=== PATIENT | male | born 1970 | race Caucasian/White ===

== ENCOUNTER 2020-04-18 13:38 | Outpatient (NON) | payer BC, SELFPAY ==
[2020-04-18 14:02] LABS: Basophils Absolute Auto 0.04 K/mm3 (0.00-0.10); Basophils Percent Auto 0.2 % (0.0-1.0); Eosinophils Absolute Auto 0.07 K/mm3 (0.02-0.50); Eosinophils Percent Auto 0.4 % (1.0-6.0); Hematocrit 44.5 % (40.0-54.0); Hemoglobin 14.6 g/dL (14.0-18.0); Immature Granulocyte Absolute 0.18 K/mm3 (0.00-0.00); Immature Granulocyte Percent A 0.9 % (0.0-0.0); Lymphocytes Absolute Auto 0.92 K/mm3 (1.10-4.50); Lymphocytes Percent Auto 4.8 % (18.0-42.0); Mean Corpuscular HGB Conc 32.8 g/dL (32.0-36.0); Mean Corpuscular Hemoglobin 27.3 pg (27.0-31.0); Mean Corpuscular Volume 83.2 fL (78.0-102.0); Monocytes Absolute Auto 1.69 K/mm3 (0.10-0.90); Monocytes Percent Auto 8.9 % (2.0-11.0); Neutrophils Absolute Auto 16.2 K/mm3 (1.7-7.2); Neutrophils Percent Auto 84.8 % (50.0-70.0); Platelet Count Result 281 K/mm3 (150-420); Red Blood Count 5.35 M/mm3 (4.70-6.10); Red Cell Distribution Width 13.6 % (11.6-14.4); White Blood Count 19.1 K/mm3 (4.8-10.8)
[2020-04-18 14:03] LABS: Appearance Urine Sl Cloudy (Clear); Bilirubin Urine Negative (Negative); Color Urine Yellow (Yellow); Glucose Urine UA Negative (Negative); Ketones Urine Negative (Negative); Leukocyte Esterase Ur 1+ LEU/UL (Negative); Nitrate Urine Negative (Negative); Protein Urine Negative (Negative); Specific Grav Ur 1.015 (1.010-1.020); Urobilinogen Urine 0.2 mg/dL (0.2-1.0); pH Urine 5.5 (5.0-8.0)
[2020-04-18 14:09] LABS: Add Urine Microscopic? YES; Blood Urine Trace-Intact (Negative); RBC Urine 0-2 /hpf (0-2); WBC Urine 21-30 /hpf (0-3)
[2020-04-18 14:10] LABS: Bacteria Urine 3+ /hpf; Squamous Epithelial Cell Urine None seen /hpf (Few)
[2020-04-18 14:30] LABS: Alanine Aminotransferase 40 U/L (16-63); Albumin Level 3.6 g/dL (3.4-5.0); Alkaline Phosphatase 86 U/L (46-116); Anion Gap 12.9 mmol/L (7-16); Aspartate Amino Transferase 24 U/L (15-37); Bilirubin,Total 0.6 mg/dL (0.00-1.00); Blood Urea Nitrogen 12 mg/dL (7-18); Calcium 8.8 mg/dL (8.5-10.1); Carbon Dioxide 27 mmol/L (21-32); Chloride 98 mmol/L (98-108); Estimated Glomerular Filt Rate > 60; Glucose 110 mg/dL (70-99); Osmolality Calculated 278 mOsm/kg (285-295); Potassium 3.9 mmol/L (3.5-5.1); Prostate Specific Antigen 22.1 ng/mL (< OR = 4.0); Sodium 134 mmol/L (136-145); Total Protein 7.3 g/dL (6.4-8.2)
== END 2020-04-18 13:39 ==
PROVIDERS: Visit Provider Nurse Practitioner Family
DX: N39.0 Urinary tract infection, site not specified (principal); R97.20 Elevated prostate specific antigen [PSA]; R39.198 Other difficulties with micturition
CPT/HCPCS: 36415; 80053; 81001; 84153; 85025; 87077; 87086; 87088; 87186

== ENCOUNTER 2021-08-28 08:39 | Outpatient (CLI) | payer BC, SELFPAY ==
[2021-08-28 10:02] LABS: SARS-CoV-2 RNA PCR Negative (Negative)
== END 2021-08-28 08:40 | disposition home or self-care (01) ==
LOC: CHSLAB 08:45
PROVIDERS: PCP Nurse Practitioner Family; Visit Provider Nurse Practitioner Family
DX: R09.81 Nasal congestion (principal); Z20.822 Contact with and (suspected) exposure to COVID-19
CPT/HCPCS: C9803; U0003; U0005

== ENCOUNTER 2022-06-12 09:37 | Outpatient (CLI) | payer BC, SELFPAY ==
[2022-06-12 10:59] LABS: SARS-CoV-2 RNA PCR Positive (Negative)
== END 2022-06-12 09:38 | disposition home or self-care (01) ==
LOC: CHSLAB 09:39
PROVIDERS: PCP Nurse Practitioner Family; Visit Provider Nurse Practitioner Family
DX: U07.1 COVID-19 (principal)
CPT/HCPCS: C9803; U0003; U0005

== ENCOUNTER 2024-08-15 13:31 | Emergency (ER) | payer BC, SELFPAY ==
--- NOTE | ~2024-08-15 | XR_ITS ---
EXAMINATION: XR chest 2V DATE: 08/15/2024 14:32 INDICATION: Cough. TECHNIQUE: Frontal and lateral views of the chest were obtained. COMPARISON: Chest CT 11/07/2019. FINDINGS: There are airspace opacities in basilar right lower lobe. No pleural effusion or pneumothor ax. The heart size is normal. IMPRESSION: 1. Airspace opacities in basilar right lower lobe, consistent with atelectasis versus pneumonia. Reviewed, dictated and finalized at location A.
[2024-08-15 13:55] VITALS: BP 166/86; PULSE 120; RESP 18; TEMP 36.9; O2SAT 94
[2024-08-15 14:00] VITALS: BP 146/81; PULSE 117; RESP 24; O2SAT 94; O2SAT 96
[2024-08-15 14:15] LABS: Basophils Percent Auto 0.4 % (0.2-1.2); Eosinophils Percent Auto 0.2 % (0-4.4); Hematocrit 46.2 % (42.0-52.0); Hemoglobin 14.9 g/dL (14.0-18.0); Immature Granulocyte Absolute 0.05 K/mm3 (0.00-0.031); Immature Granulocyte Percent A 0.5 % (0-0.5); Lymphocytes Absolute Auto 0.88 K/mm3 (0.9-3.2); Mean Corpuscular HGB Conc 32.3 g/dl (32-36); Mean Corpuscular Hemoglobin 26.7 pg (26-34); Mean Corpuscular Volume 82.6 fl (80-100); Monocytes Absolute Auto 0.9 K/mm3 (0.1-0.6); Neutrophils Absolute Auto 7.9 K/mm3 (1.3-6.7); Neutrophils Percent Auto 80.9 % (45.5-73.1); Platelet Count Result 338 k/mm3 (150-375); Red Blood Count 5.59 M/mm3 (4.6-6.20); Red Cell Distribution Width 13.7 % (11.5-14.5); White Blood Count 9.8 K/mm3 (4.5-10.0)
[2024-08-15 14:18] LABS: Add Urine Microscopic? YES; Appearance Urine Clear (Clear); Bacteria Urine None Seen /hpf; Bilirubin Urine Negative (Negative); Blood Urine Negative (Negative); Color Urine Yellow (Yellow); Glucose Urine UA Negative (Negative); Ketones Urine Negative (Negative); Leukocyte Esterase Ur Negative LEU/UL (Negative); Nitrate Urine Negative (Negative); Protein Urine 1+ mg/dL (Negative); RBC Urine 0-2 /hpf (0-2); Specific Grav Ur 1.018 (1.001-1.035); Squamous Epithelial Cell Urine None Seen /hpf (Few); Urobilinogen Urine 0.2 mg/dL (<2.0); WBC Urine 0-5 /hpf (0-3); pH Urine 5.5 (5.0-9.0)
[2024-08-15 14:22] LABS: Alanine Aminotransferase 22 U/L (6-50); Albumin Level 4.4 g/dL (3.5-5.1); Alkaline Phosphatase 84 U/L (38-126); Anion Gap 12 mmol/L (4-12); Aspartate Amino Transferase 24 U/L (17-59); Bilirubin,Total 0.7 mg/dL (0.2-1.3); Blood Urea Nitrogen 12 mg/dL (9-20); Calcium 9.3 mg/dL (8.4-10.2); Carbon Dioxide 24 mmol/L (22-30); Chloride 98 mmol/L (98-107); Estimated CRCL calculation 122 ml/min; Estimated Glomerular Filt Rate > 60; Glucose 193 mg/dL (65-110); Potassium 3.3 mmol/L (3.4-5.0); Sodium 134 mmol/L (137-145)
[2024-08-15 14:29] LABS: NT Pro B Type Natriuretic Pept 246 pg/mL (19.9-100)
[2024-08-15 14:30] VITALS: BP 144/88; PULSE 111; RESP 24; O2SAT 95
[2024-08-15] MEDS: SODIUM CHLORIDE 0.9% IV 1,000 ML 999 ML IV CONT (14:43)
[2024-08-15 14:49] LABS: Influenza A QL RT-PCR Negative (Negative); Influenza B QL RT-PCR Negative (Negative); RSV RNA, RT-PCR Negative (Negative); SARS-CoV-2 RNA PCR Negative (Negative)
[2024-08-15 15:00] VITALS: BP 152/82; PULSE 104; RESP 20; O2SAT 95
[2024-08-15 15:30] VITALS: BP 154/90; PULSE 103; RESP 20; O2SAT 97
--- NOTE | 2024-08-15 15:46 | ECG_ITS ---
Test Date: 2024-08-15 13:57:48 Measurements Intervals [place] Rate: 121 P: 16 WI: 156 QRS: 43 QRSD: 95 T: 18 QT: 420 QTc: 597 Interpretive Statements SINUS TACHYCARDIA NONSPECIFIC T-WAVE ABNORMALITY No previous ECG available for comparison Electronically Signed On 08-16-2024 11:58:39 CDT by Maria Luz Edmond M.D.
--- NOTE | 2024-08-15 16:24 | ED.GENADULT ---
HPI - General Adult General Chief complaint: Weakness Stated complaint: WEAK Time Seen by Provider: 08/15/24 13:44 History of Present Illness HPI narrative: Patient is a 54-year-old male who presents ER with weakness. Worsening over last couple days. Reports fevers and chills. Went to an urgent care and was diagnosed with heart failure and pneumonia. He is prescribed Levaquin and Lasix. He has had poor appetite. No syncope. Related Data Home Medications Medication Instructions Recorded Confirmed acetaminophen 500 mg tablet 1,000 mg PO Q6H PRN 07/31/22 06/29/23 (Tylenol Extra Strength) cholecalciferol (vitamin D3) 125 125 mcg PO DAILY 07/31/22 06/29/23 mcg (5,000 unit) capsule docusate sodium 100 mg capsule 100 mg PO DAILY 07/31/22 06/29/23 (Colace) Allergies Allergy/AdvReac Type Severity Reaction Status Date / Time Penicillins Allergy Intermediate Unknown Verified 08/15/24 13:43 Review of Systems Review of Systems: All systems reviewed & are unremarkable except as noted in HPI and below Constitutional: Constitutional: Reports chills, Reports fatigue, Reports fever(s) and Reports poor appetite ENT: Reports system reviewed and no additional complaints, except as documented Cardiovascular: Cardiovascular: Reports no additional cardiovascular complaints Respiratory: Respiratory: Reports cough, Denies dyspnea and Denies wheezing Gastrointestinal: Gastrointestinal: Reports no additional gastrointestinal complaints [facility] Past Medical History Medical History (Updated 08/15/24 @ 16:33 by Adam Galan MD) Acute bacterial sinusitis BMI 50.0-59.9, adult BPH (benign prostatic hyperplasia) BPH (benign prostatic hyperplasia) Enlarged prostate Fatigue HTN (hypertension) Surgical History Surgical History History of cystoscopy Cystoscopy, laser vaporization prostate on 07/29/[address] Grover Family History Family History Father Family history of type 2 diabetes mellitus Father Diabetes mellitus Family history of cardiovascular disease Social History Social History (Updated 10/13/23 @ 13:51 by Rosemary Norwood APRN) Smoking status: Former smoker Tobacco type: cigarettes Smoking end date: 11/02/93 Alcohol intake: current Gender identity (if verbalized by the patient): Male Exam Narrative: GENERAL: Well-appearing, obese, and in no acute distress. HEAD: Normocephalic, atraumatic. ENT: Mucous membranes moist. NECK: Supple. CHEST: Clear to auscultation. No respiratory distress. HEART: Tachycardic and regular. Normal peripheral pulses. ABDOMEN: Soft, nontender, nondistended. EXTREMITIES: Normal range of motion. No edema. SKIN: Warm, dry, no rash. NEURO: Alert and oriented x3. PSYCH: Normal mood and affect. Course Course Emergency Course: patient receive IV fluid. Feels much better. Instructed to discontinue furosemide but to continue his antibiotic. Suspect dehydration and pneumonia. Follow-up with PCP. Vital Signs Vital signs: Vital Signs Temperature 98.5 F 08/15/24 13:55 Pulse Rate 120 H 08/15/24 13:55 Respiratory Rate 18 08/15/24 13:55 Blood Pressure 166/86 H 08/15/24 13:55 Pulse Oximetry 94 08/15/24 13:55 Temperature 98.5 F 08/15/24 13:55 Pulse Rate 103 H 08/15/24 15:30 Respiratory Rate 20 08/15/24 15:30 Blood Pressure 154/90 H 08/15/24 15:30 Pulse Oximetry 97 08/15/24 15:30 Oxygen Delivery Room Air 08/15/24 14:00 Medical Decision Making Vital Signs Vital Signs: Vital Signs Temperature 98.5 F 08/15/24 13:55 Pulse Rate 120 H 08/15/24 13:55 Respiratory Rate 18 08/15/24 13:55 Blood Pressure 166/86 H 08/15/24 13:55 Pulse Oximetry 94 08/15/24 13:55 Temperature 98.5 F 08/15/24 13:55 Pulse Rate 103 H 08/15/24 15:30 Respiratory Rate 20 08/15/24 15:30 Blood Pressure 15
[2024-08-15 16:30] VITALS: BP 163/91; PULSE 104; RESP 20; TEMP 37.2; O2SAT 98
== END 2024-08-15 16:52 | disposition home or self-care (01) ==
PROVIDERS: Emergency Provider Emergency Medicine
DX: J18.9 Pneumonia, unspecified organism (principal); E86.0 Dehydration; Z20.822 Contact with and (suspected) exposure to COVID-19; I10 Essential (primary) hypertension; N40.0 Benign prostatic hyperplasia without lower urinary tract symptoms; Z87.891 Personal history of nicotine dependence; Z79.899 Other long term (current) drug therapy; R94.31 Abnormal electrocardiogram [ECG] [EKG]; R00.0 Tachycardia, unspecified
CPT/HCPCS: 36415; 71046; 80053; 81001; 83880; 85025; 87637; 93005; 96360; 99283; J7030

== ENCOUNTER 2024-12-29 14:17 | Outpatient (CLI) | payer BC, SELFPAY | END 2024-12-29 14:18 | disposition home or self-care (01) | LOC: CHSIMG 14:20 | PROVIDERS: PCP Nurse Practitioner Family; Visit Provider Nurse Practitioner Family | DX: M79.89 Other specified soft tissue disorders (principal) | CPT/HCPCS: 93971 ==

== ENCOUNTER 2025-04-11 11:49 | Outpatient (CLI) | payer BC, SELFPAY ==
--- NOTE | 2025-04-11 11:54 | ECHO_ITS ---
Patient Info Name: Zachary Ellison Age: 55 years : 1970 Gender: Male Ht: 70 in Wt: 350 lbs BSA: 2.89 m2 HR: 102 bpm BP: 160 / 100 mmHg Technical Quality: Fair Exam Date: 04/11/2025 11:55 AM Patient Status: O Admit Date: 04/11/2025 Exam Type: CA echo doppler color flow Complete two-dimensional, color flow and Doppler transthoracic echocardiogram is performed. Die Engraver: Danyell Sy Attending Provider: Sloane Villegas Summary 1. Complete two-dimensional, color flow and Doppler transthoracic echocardiogram is performed. 2. Left ventricular chamber dimension is normal. 3. Left ventricular systolic function is normal, estimated at 65-70. 4. There is mild concentric increased left ventricular wall thickness. 5. The left ventricular diastolic function is normal. 6. E/e' 7 is not elevated. 7. Left atrial chamber dimension is mildly enlarged. 8. There is trace mitral valve regurgitation. 9. There is trace tricuspid valve regurgitation. 10. Dilated inferior vena cava with >50% collapse upon inspiration consistent with elevated right atrial pressure, 10 mmHg. Left Ventricle E/e' 7 is not elevated. Left ventricular chamber dimension is normal. Left ventricular systolic function is normal, estimated at 65-70. There is mild concentric increased left ventricular wall thickness. The left ventricular diastolic function is normal. Right Ventricle Right ventricular chamber dimension is normal. Right ventricular systolic function is normal and with normal TAPSE 3.3 cm. Left Atria Left atrial chamber dimension is mildly enlarged. Right Atria Right atrial chamber dimension is normal. Aortic Valve The aortic valve is trileaflet. There is no aortic valve stenosis. There is no aortic valve regurgitation. Pulmonic Valve There is no pulmonic regurgitation. Mitral Valve There is no mitral valve stenosis. There is trace mitral valve regurgitation. Tricuspid Valve There is trace tricuspid valve regurgitation. RVSP is not measured due to an inadequate TR jet. Pericardium/Pleural There is no pericardial effusion. Inferior Vena Cava Dilated inferior vena cava with >50% collapse upon inspiration consistent with elevated right atrial pressure, 10 mmHg. Aorta The aortic root size at the sinus of Valsalva is normal. Left Ventricular Outflow Tract Name Value Normal LVOT 2D LVOT Diameter 2.2 cm LVOT Doppler LVOT Peak Velocity 134 cm/s LVOT Peak Gradient 7 mmHg LVOT Mean Gradient 4 mmHg LVOT VTI 22 cm LVOT VTI/AV VTI Ratio 0.9 LVOT Stroke Volume 80 ml LVOT CO 8.0 l/min LVOT CI 2.8 l/min/m2 Pulmonic Valve Name Value Normal PV Doppler PV Peak Velocity 159 cm/s PV Peak Gradient 10 mmHg PV Regurgitation Doppler OK Peak End Diastolic Velocity 81 cm/s Mitral Valve Name Value Normal MV Diastolic Function MV E Peak Velocity 110 cm/s MV A Peak Velocity 92 cm/s MV E/A 1.2 MV Decel Time (PW) 183 ms MV Annular TDI MV E/e' (Septal) 7.5 MV E/e' (Lateral) 8.6 MV E/e' (Average) 8.0 Tricuspid Valve Name Value Normal Estimated PAP/RSVP RA Pressure 10 mmHg <=5 TV Annular TDI TV Lateral Prachi s' Velocity 17.3 cm/s >=9.5 Aortic Valve Name Value Normal AV Doppler AV Peak Velocity 153 cm/s AV Peak Gradient 9 mmHg AV Mean Gradient 5 mmHg AV VTI 25 cm AV Area (Cont Eq VTI) 3.2 cm2 >=3.0 AV Area (Cont Eq Mohan) 3.2 cm2 AV DI (Mohan) 0.88 AV Regurgitation 2D LVOT Area 3.7 cm2 Ventricles Name Value Normal LV Dimensions 2D/MM IVS Diastolic Thickness (2D) 1.2 cm 0.6-1.0 LVID Diastole (2D) 4.9 cm 4.2-5.8 LVIW Diastolic Thickness (2D) 1.0 cm 0.6-1.0 LVID Systole (2D) 3.1 cm 2.5-4.0 LVOT Diameter 2.2 cm LV Mass (2D Cubed) 198.84 g 88.00-224.00 LV Mass Index (2D Cubed) 69 g/m2 49-115 Relative Wall Thickness (2D) 0.39 <=0.42 LV Fractional Shortening/Ejection Fraction 2D/MM LV Fractional Shortening (2D) 37 % 25-43 LV EF (2D Teichholz) 67 % LV Diastolic Volume (4C MOD) 170 ml LV EF (4C MOD) 63 % LV Diastolic Volume (2C MOD) 189 ml LV EF (2C MOD) 66 % LV Diastolic Volume (BP MOD) 181 ml 62-150 LV Diastolic Volume Index (BP MOD) 63 ml/m2 34-74 LV Systolic Volume (BP MOD) 64 ml 21-61 LV Systolic Volume Index (BP MOD) 22 ml/m2 11-31 LV EF (BP MOD) 64 % 52-72 LV Diastolic Length (4C) 10.0 cm LV Systolic Length (4C) 8.0 cm LV Stroke Volume (4C MOD) 107 ml Atria Name Value Normal LA Dimensions LA Volume (4C A-L) 53 ml LA Volume (BP A-L) 65 ml RA Dimensions RA Systolic Major [place] Length (4C) 5.5 cm 2.1-2.7 RA Area (4C) 15.5 cm2 <=18.0 Report Signatures
--- OUTSIDE RECORDS SUMMARY | 2025-04-11 12:59 | XMS_ITS | Clinical Summary ---
Author Organization [facility] Address [address] [place] [address] Phone Care Team Providers Care Electrical And Instrument Engineer Name Role Phone Sloaen Villegas APRN, CLERICAL ASSISTANT Primary Care Provi tori Talha Goldsmith MD Unavailable [phone] Allergies Active Allergy Reactions Criticality Noted Date Comments Penicillins Rash Low 04/29/2019 Medications amLODIPine (NORVASC) 10 MG Tablet Take 10 mg by mouth daily. Active Cholecalciferol (Vitamin D3) 125 mcg Capsule Take 1 Capsule by mouth daily. Active lisinopril (PRINIVIL, ZESTRIL) 40 MG Tablet Take 40 mg by mouth daily. Active acetaminophen (TYLENOL) 500 MG Tablet Take 1,000 mg by mouth. Active Active Problems No known active problems Family History Medical History Relation Name Comments Diabetes Father Heart Disease Father Diabetes Mother Relation Name Status Comments Father Mother Social History Tobacco Use Types Packs/Day Years Used Date Smoking Tobacco: Former Cigarettes Q uit: 1994 Smokeless Tobacco: Former Chew Quit: 1989 Tobacco Cessation:Counseling Given: No Alcohol Use Standard Drinks/Week Comments Not Currently 0 (1 standard drink = 0.6 oz pur e alcohol) once a month Sex and Gender Information Value Date Recorded Sex Assigned at Not on file Legal Sex Male 10:24 PM CDT Gender Identity Not on file Sexual Orientation Not on file Last Filed Vital Signs Vital Sign Reading Time Taken Comments Blood Pressure 166/108 06/06/2024 8:23 AM CDT Pulse 88 06/06/2024 8:23 AM CDT Temperature - - Respiratory Rate 19 06/06/2024 8:23 AM CDT Oxygen Saturation 97% 06/06/2024 8:23 AM CDT Inhaled Oxygen Concentration - - Weight 161 kg (355 lb) 06/06/2024 8:23 AM CDT Height 182.9 cm (6') 06/06/2024 8:23 AM CDT Body Mass Index 48.15 06/06/2024 8:23 AM CDT Plan of Treatment Upcoming Encounters Date Type Department Care Team (Late st Contact Info) Description 06/12/2025 8:00 AM CDT Office Visit [facility] [address] [place] [address] [facility] [address] [address] Health Maintenance Due Date Last Done Comments Hepatitis C Virus (HCV) Screening 1970 Hepatitis B Immunization (1 of 3 - 19+ 3-dose series) 01/10/1988 Cologuard 2014 Colonoscopy 2014 Colorectal Cancer Screening 2014 Immunochemical Fecal Occult Blood 2014 Pneumococcal Immunization (50+ years) (1 of 1 - PCV) 2019 Zoster Immunization (1 of 2) 2019 SARS-COV-2 Immunization ( - season) 2024 09/18/2021, 01/20/2021, 12/30/2020 Influenza Immunization (Season Ended) 2025 09/15/2022, 07/21/2020, 09/13/2016, Additional history exists Respiratory Syncytial Virus (RSV) Immunization (Adult) (1 - 1-dose 75+ series) 01/10/2044 TdaP Immunization Completed 04/03/2014 PSA Discussion Completed 06/06/2024 Human Papillomavirus (HPV) Immunization Aged Out No longer eligible based on patient's age to complete this topic Meningococcal Immunization (ACWY) Aged Out No longer eligible based on patient's age to complete this topic Rotavirus Immunization Aged Out No lo nger eligible based on patient's age to complete this topic Procedures Procedure Name Priority Date/Time Associated Diagnosis Comments PSA SCREEN Routine 06/06/2024 9:05 AM CDT History of elevated PSA from Last 3 Months or Most Recently Relevant to Health Maintenance Results * PSA SCREEN (06/06/2024 9:05 AM CDT) PSA SCREEN, TOTAL 3.53 <4.00 ng/mL 06/06/2024 11:01 AM CDT [facility] Blood Venipuncture / Unknown 06/06/2024 9:05 AM CDT 06/06/2024 9:36 AM CDT Narrative [facility] - 06/06/2024 11:01 AM CDT The [employer] Total PSA assay is a Chemiluminescent Microparticle Immunoassay (CMIA) for the quantitative determination of total PSA (both free PSA and PSA complexed to [id number]) in human serum. Total PSA values obtained with different assay methods, including Sprague PSA assays, cannot be used interchangeably. Talha Goldsmith MD CHEMISTRY ORDERABLES Fi nal Result [facility] [address] [place] [address] from Last 3 Months or Most Recently Relevant to Health Maintenance Insurance [facility] Care Teams Electrical And Instrument Engineer Relationship Specialty Start Date End Date Sloane Villegas, PHOTO STYLIST, CLERICAL ASSISTANT [address] [place] [address] PCP - General Advanced Practice Nurse 06/06/24 Talha Goldsmith MD [address] [address] Consulting Physician Urology 06/06/24
== END 2025-04-11 11:50 | disposition home or self-care (01) ==
LOC: CHSIMG 11:50
PROVIDERS: PCP Nurse Practitioner Family; Visit Provider Nurse Practitioner Family
DX: R79.89 Other specified abnormal findings of blood chemistry (principal); R60.9 Edema, unspecified; I10 Essential (primary) hypertension; I51.7 Cardiomegaly
CPT/HCPCS: 93306

== ENCOUNTER 2025-05-29 13:55 | Outpatient (CLI) | payer BC, SELFPAY ==
--- NOTE | 2025-05-29 14:01 | ECG_ITS ---
Test Date: 2025-05-29 14:08:52 Measurements Intervals [place] Rate: 100 P: 5 MT: 160 QRS: 60 QRSD: 106 T: 15 QT: 341 QTc: 441 Interpretive Statements SINUS TACHYCARDIA INCOMPLETE RIGHT BUNDLE BRANCH BLOCK [90+ ms QRS DURATION, TERMINAL R IN V1/V2, 40+ ms S IN I/aVL/V4/V5/V6] ABNORMAL RHYTHM ECG Compared to ECG 08/15/2024 13:57:48 NO DIFFERENCE Electronically Signed On 05-31-2025 08:19:32 CDT by Dalton Niño M.D.
--- OUTSIDE RECORDS SUMMARY | 2025-05-29 14:03 | XMS_ITS | Clinical Summary ---
Author Organization [facility] Address [facility] [place] [address] Care Team Providers Care Solar Maintenance Technician Name Role Phone Sloane Villegas CHAIR FINISHER Primary Care Provider [phone] Allergies Active Allergy Reactions Criticality Noted Date Comments Penicillins Rash Low 04/29/2019 Medications lisinopril 40 MG tablet Take 40 mg by mouth daily. 04/05/2020 Active vitamin D3, cholecalciferol , 5000 UNITS capsule Take 1 capsule by mouth daily. Active acetaminophen (TYLENOL) 500 MG tablet Take 1,000 mg by mouth every 6 (six) hours as needed for Pain. Active amLODIPine (NORVASC) 10 MG tablet 08/06/2022 Active Active Problems Problem Noted Date Diagnosed Date BPH with urinary obstruction 07/29/2022 Benign prostatic hyperplasia with urinary obstru ction 05/10/2020 Elevated PSA 05/10/2020 Other microscopic hematuria 05/10/2020 Incomplete bladder emptying 09/16/2019 Hyperlipidemia 03/18/2014 Overview (07/29/2021): Hyperlipidemia LDL goal < 100 Red eyes 04/08/2013 Resolved Problems Problem Noted Date Diagnosed Date Resolved Date Acute cystitis with hematuria 09/16/2019 10/21/2019 Prostatitis, acute 09/16/2019 9 Encounter for preventive health examination 04/08/2013 08/05/2021 Immunizations Immunization Administration Dates Next Due Flucelvax 6 Months+ (Prefilled Syringe) 07/21/20 20 Influenza Adult (Generic) 07/21/2020,09/13/2016, 08/24/2014 Tdap (Boostrix) 04/03/2014 Family History Medical History Relation Comments Heart Disease Brother Diabetes Father Heart Disease Father Diabetes Mother Relation Status Comments Brother Father Mother Social History Tobacco Use Types Packs/Day Years Used Date Smoking Tobacco: Former Cigarettes 1 10 1 985 - 1994 Smokeless Tobacco: Former Chew Quit: 1989 Tobacco Cessation:Counseling Given: No Alcohol Use Standard Drinks/Week Comments Not Currently 0 (1 standard drink = 0.6 oz pur e alcohol) ONCE A MONTH AUDIT-C Answer Date Recorded Frequency of Alcohol Consumption Never 04/29/2019 Average Number of Drinks Not on file 019 Frequency of Binge Drinking Not on file 04/03 PHQ-2 Answer Date Recorded Patient Health Questionnaire-2 Score 0 11/13/2022 Sex and Gender Information Value Date Recorded Sex Assigned at Not on file Legal Sex Male 7:01 PM CDT Gender Identity Not on file Sexual Orientation Not on file Last Filed Vital Signs Vital Sign Reading Time Taken Comments Blood Pressure 140/90 11/13/2022 10:44 AM SR. LOGISTICS ANALYST Pulse 95 11/13/2022 10:44 AM SR. LOGISTICS ANALYST Temperature 36.2 C (97.2 F) 11/13/2022 10:44 AM SR. LOGISTICS ANALYST Respiratory Rate 18 11/13/2022 10:4 4 AM SR. LOGISTICS ANALYST Oxygen Saturation 98% 11/13/2022 10: 44 AM SR. LOGISTICS ANALYST Inhaled Oxygen Concentration - - Weight 167.9 kg (370 lb 3.2 oz) 023 10:44 AM SR. LOGISTICS ANALYST Height 182.9 cm (6') 11/13/2022 10:44 AM SR. LOGISTICS ANALYST Body Mass Index 50.21 11/13/2022 10:44 AM SR. LOGISTICS ANALYST Plan of Treatment Health Maintenance Due Date Last Done Comments Colorectal Cancer Screening Colonoscopy (10 Years) 1970 Annual Physical 01/10/1972 Hepatitis C 1987 Hepatitis B Vaccines (1 of 3 - 19+ 3-dose series) 01/10/1988 Pneumococcal Vaccine: 50+ Years (1 of 1 - PCV) 2019 Zoster Vaccines (1 of 2) 2019 DTaP, Tdap and Td Vaccines ( 2 - Td or Tdap) 04/03/2024 04/03/2014 COVID-19 Vaccine (4 - 2023-2 5 season) 2024 09/18/2021, 01/20/2021, 12/30/2020 Meningococcal B Vaccine Aged Out No l onger eligible based on patient's age to complete this topic Meningococcal Vaccine Aged Out No sally joel eligible based on patient's age to complete this topic RSV Immunizations Under 20 Months Aged Out No longer eligible b ased on patient's age to complete this topic Additional Health Concerns Infection Onset Date Last Indicated ESBL - Extended Spectrum Beta-lactamase 11/22/19 19 11/22/2018 Insurance [facility] Advance Directives * Full Code (Latest Code Status on File) Date Activated Date Inactivated Comments 07/29/2022 10:30 AM 07/30/2022 3:08 PM Care Teams Solar Maintenance Technician Relationship Specialty Start Date End Date Sloane Villegas FNP [address] [place] [address] PCP - General NURSE PRACTITIONER 07/17/22
--- OUTSIDE RECORDS SUMMARY | 2025-05-29 14:03 | XMS_ITS | Clinical Summary ---
Author Organization [facility] Address [address] [place] [address] Phone Care Team Providers Care Grinder Set Up Operator Thread Name Role Phone Sloane Villegas APRN, CARGO BRACER Primary Care Provi tori Talha Goldsmith MD Unavailable [phone] Allergies Active Allergy Reactions Criticality Noted Date [...] Visit [facility] [address] [place] [address] Talha Goldsmith MD [address] [address] Health Maintenance Due Date Last Done Comments [...] season) 2024 09/18/2021, 01/20/2021, 12/30/2020 Influenza Immunization (#1) 07/03/202509/02, 07/21/2020, 09/13/2016, Additional history exists Respiratory Syncytial [...] 3.53 <4.00 ng/mL 06/06/2024 11:01 AM CDT [facility] Blood Venipuncture / Unknown 06/06/2024 9:05 AM CDT 06/06/2024 9:36 AM CDT Narrative [facility] - 06/06/2024 11:01 AM CDT The [employer] Total PSA assay is a Chemiluminescent Microparticle Immunoassay (CMIA) for the quantitative determination of total PSA (both free PSA and PSA complexed to [id number]) in human serum. Total PSA values obtained with different assay methods, including Sprague PSA assays, cannot be used interchangeably. Talha Goldsmith MD CHEMISTRY ORDERABLES Fi nal Result [facility] [address] [place] [address] from Last 3 Months or Most Recently Relevant to Health Maintenance Insurance [facility] Care Teams Grinder Set Up Operator Thread Relationship Specialty Start Date End Date Sloane Villegas, HEAD OF HOUSEKEEPING, CARGO BRACER [address] [place] [address] PCP - General Advanced Practice Nurse 06/06/24 Talha Goldsmith MD [address] [address] Consulting Physician Urology 06/06/24
--- OUTSIDE RECORDS SUMMARY | 2025-05-29 14:03 | XMS_ITS | Encounter Summary ---
Author Organization [facility] Address [address] [place] [address] Care Team Providers Care Juice Standardizer Name Role Phone Max Gage MD Primary Care Provider [phone] Pineda Schulz DO Primary Care Provider [phone] Sloane Villegas Primary Care Provider [phone] Encounter Details Date Type Department Care Team (Late st Contact Info) Description 06/06/2015 Abstract [facility] CONVERSION [address] [place] [address] , Generic Conversion, Social History Tobacco Use Types Packs/Day Years Used Date Smoking Tobacco: Never Assessed Sex and Gender Information Value Date Recorded Sex Assigned at Not on file Legal Sex Male 7:01 PM CDT Gender Identity Not on file Sexual Orientation Not on file documented as of this encounter Plan of Treatment Not on file documented as of this encounter Visit Diagnoses Not on filedocumented in this encounter Additional Health Concerns Infection Onset Date Last Indicated Resolved Time ESBL - Extended Spectrum Beta-lactamase 11/22/2018 0 11/22/2018 documented as of this encounter Care Teams Juice Standardizer Relationship Specialty Start Date End Date Max Gage MD [address] [place] [address] PCP - General FAMILY PRACTICE 04/29/19 04/18/20 Pineda Schulz DO [address] [place] [address] PCP - General FAMILY PRACTICE 04/19/20 07/16/22 Sloane Villegas, PATRICK [address] [place] [address] PCP - General NURSE PRACTITIONER 07/17/22 documented as of this encounter
== END 2025-05-29 13:56 | disposition home or self-care (01) ==
LOC: CHSLAB 13:57 → CHSCARD 14:00
PROVIDERS: PCP Nurse Practitioner Family; Visit Provider Internal Medicine Cardiovascular Disease
DX: R07.9 Chest pain, unspecified (principal); R00.0 Tachycardia, unspecified; I45.19 Other right bundle-branch block; R94.31 Abnormal electrocardiogram [ECG] [EKG]
CPT/HCPCS: 93005

== ENCOUNTER 2025-06-06 07:34 | Outpatient (CLI) | payer BC, SELFPAY ==
--- OUTSIDE RECORDS SUMMARY | 2025-06-06 07:39 | XMS_ITS | Clinical Summary ---
Author Organization [facility] Address [address] [place] [address] Care Team Providers Care Saloon Keeper Name Role Phone Sloane Villegas ORCHESTRA DIRECTOR Primary Care Provider [phone] Allergies Active Allergy Reactions Criticality Noted Date [...] Comments Blood Pressure 140/90 11/13/2022 10:44 AM OPENER [employer]IFIER [employer] Pulse 95 11/13/2022 10:44 AM OPENER VERIFIER [employer] Temperature 36.2 C (97.2 F) 11/13/2022 10:44 AM OPENER [employer]IFIER [employer] Respiratory Rate 18 11/13/2022 10:4 4 AM OPENER [employer]IFIER [employer] Oxygen Saturation 98% 11/13/2022 10: 44 AM OPENER VERIFIER P[employer]S Inhaled Oxygen Concentration - - Weight 167.9 kg (370 lb 3.2 oz) 023 10:44 AM OPENER VERIFIER P[employer] Height 182.9 cm (6') 11/13/2022 10:44 AM OPENER VERIFIER P[employer] Body Mass Index 50.21 11/13/2022 10:44 AM OPENER VERIFIER P[employer]ER [employer]UST[employer]S Plan of Treatment Health Maintenance Due Date [...] Extended Spectrum Beta-lactamase 11/22/19 19 11/22/2018 Insurance [facility] Advance Directives * Full Code (Latest Code Status on File) Date Activated Date Inactivated Comments 07/29/2022 10:30 AM 07/30/2022 3:08 PM Care Teams Saloon Keeper Relationship Specialty Start Date End Date Sloane Villegas FNP [address] [place] [address] PCP - General NURSE PRACTITIONER 07/17/22
--- OUTSIDE RECORDS SUMMARY | 2025-06-06 07:39 | XMS_ITS | Encounter Summary ---
Author Organization [facility] Address [address] [place] [address] Care Team Providers Care Telemetry Tech Name Role Phone Max Gage MD Primary Care Provider [phone] Pineda Schulz DO Primary Care Provider [phone] Sloane Villegas Primary Care Provider [phone] Encounter Details Date Type Department Care Team (Late st Contact Info) Description 06/06/2015 Abstract [facility] CONVERSION [address] [place] [address] , Generic Conversion, Social History Tobacco Use [...] documented as of this encounter Care Teams Telemetry Tech Relationship Specialty Start Date End Date Max Gage MD [address] [place] [address] PCP - General FAMILY PRACTICE 04/29/19 04/18/20 Pineda Schulz DO [address] [place] [address] PCP - General FAMILY PRACTICE 04/19/20 07/16/22 Sloane Villegas, PATRICK [address] [place] [address] PCP - General NURSE PRACTITIONER 07/17/22 documented as of this encounter
--- OUTSIDE RECORDS SUMMARY | 2025-06-06 07:39 | XMS_ITS | Clinical Summary ---
Author Organization [facility] Address [address] [place] [address] Phone Care Team Providers Care Summer Law Clerk Name Role Phone Sloane Villegas APRN, SAFETY TECH Primary Care Provi tori Talha Goldsmith MD Unavailable [phone] Allergies Active Allergy Reactions Criticality Noted Date [...] [facility] [address] [place] [address] Talha Goldsmith MD [address] [address] Health Maintenance Due Date Last Done Comments [...] 3.53 <4.00 ng/mL 06/06/2024 11:01 AM CDT [facility] Blood Venipuncture / Unknown 06/06/2024 9:05 AM CDT 06/06/2024 9:36 AM CDT Narrative [facility] - 06/06/2024 11:01 AM CDT The [employer] Total PSA assay is a Chemiluminescent Microparticle Immunoassay (CMIA) for the quantitative determination of total PSA (both free PSA and PSA complexed to [id number]) in human serum. Total PSA values obtained with different assay methods, including Sprague PSA assays, cannot be used interchangeably. Talha Goldsmith MD CHEMISTRY ORDERABLES Fi nal Result [facility] [address] [place] [address] from Last 3 Months or Most Recently Relevant to Health Maintenance Insurance [facility] Care Teams Summer Law Clerk Relationship Specialty Start Date End Date Sloane Villegas, ATLASSIAN ADMINISTRATOR, SAFETY TECH [address] [place] [address] PCP - General Advanced Practice Nurse 06/06/24 Talha Goldsmith MD [address] [address] Consulting Physician Urology 06/06/24
[2025-06-06 08:26] LABS: Alanine Aminotransferase 26 U/L (6-50); Albumin Level 4.6 g/dL (3.5-5.1); Alkaline Phosphatase 79 U/L (38-126); Anion Gap 4 mmol/L (4-12); Aspartate Amino Transferase 25 U/L (17-59); Bilirubin,Total 0.6 mg/dL (0.2-1.3); Blood Urea Nitrogen 17 mg/dL (9-20); Calcium 10.1 mg/dL (8.4-10.2); Carbon Dioxide 27 mmol/L (22-30); Chloride 107 mmol/L (98-107); Cholesterol 265 mg/dL (0-200); Estimated Glomerular Filt Rate > 60; Glucose 123 mg/dL (65-110); HDL Direct 48 mg/dL; Osmolality Calculated 288 mOsm/kg (285-295); Potassium 4.9 mmol/L (3.4-5.0); Sodium 138 mmol/L (137-145); Total Protein 7.4 g/dL (6.3-8.2); Triglycerides 206 mg/dL (<150)
== END 2025-06-06 07:35 | disposition home or self-care (01) ==
LOC: CHSLAB 07:35
PROVIDERS: PCP Nurse Practitioner Family; Visit Provider Internal Medicine Cardiovascular Disease
DX: I10 Essential (primary) hypertension (principal)
CPT/HCPCS: 36415; 80053; 80061

== ENCOUNTER 2025-06-13 08:32 | Outpatient (CLI) | payer BC, SELFPAY ==
--- NOTE | ~2025-06-13 | NM_ITS ---
EXAMINATION: NM mariposa stress w perfusion DATE: 06/13/2025 11:42 INDICATION: Chest pain TECHNIQUE: Rest images were obtained following intravenous administration of 10.9 mCi Tc99m tetrofosm in (Myoview). The patient was infused intravenously with Lexiscan (Regadenoson). Then, 35 mCi Tc99m t etrofosmin (Myoview) was administered intravenously, and stress images were obtained. Data was recons tructed into short axis and horizontal and vertical long axis SPECT images. Gated SPECT images were a lso obtained. COMPARISON: None. FINDINGS: Small perfusion defect at the mid inferior segment on the post stress images with larger pe rfusion defect extending into the basilar inferior and mid and basilar inferolateral segments on the rest imaging suggesting this is most likely related to diaphragmatic attenuation artifact although sm all infarct cannot be absolutely excluded. There is an additional equivocal small fixed infarct at th e mid anteroseptal segment which is again more prominent on the rest than on the stress images. There is elevation of the right hemidiaphragm with large amount of hepatic activity evident on the rotatin g source images which is superimposed over the and appears to accentuate activity in the apical segme nts on some of the images which may account for the relative decreased activity at the mid and basila r segments particularly on the rest images. No reversible ischemia. There is normal left ventricular chamber size, wall motion and ejection fraction. Left ventricular ejection fraction measures >70%. IMPRESSION: 1. Equivocal small infarcts versus more likely artifact at the mid anteroseptal and mid inferior segm ents. No reversible ischemia. 2. Left ventricular ejection fraction measuring >70%. Reviewed, dictated and finalized at location A. IMPRESSION: 1. Equivocal small infarcts versus more likely artifact at the mid anteroseptal and mid inferior segments. No reversible ischemia. 2. Left ventricular ejection fraction measuring >70%.
--- OUTSIDE RECORDS SUMMARY | 2025-06-13 08:49 | XMS_ITS | Encounter Summary ---
Author Organization [facility] Care Team Providers Care Production Support Consultant Name Role Phone Sloane Villegas GATE TENDER, ARMAMENT REPAIRER Primary Care Provi tori Talha Goldsmith MD Unavailable [phone] Encounter Details Date Type Department Care Team (Latest Contact Info) Description 06/12/2025 Travel Social History Tobacco Use Types Packs/Day Years Used Date Smoking Tobacco: Former Cigarettes Q uit: 1994 Smokeless Tobacco: Former Chew Quit: 1989 Alcohol Use Standard Drinks/Week Comments Not Currently 0 (1 standard drink = 0.6 oz pur e alcohol) once a month Sex and Gender Information Value Date Recorded Sex Assigned at Not on file Legal Sex Male 10:24 PM CDT Gender Identity Not on file Sexual Orientation Not on file documented as of this encounter Plan of Treatment Upcoming Encounters Date Type Department Care Team (Late st Contact Info) Description 06/18/2026 8:00 AM CDT Office Visit [facility] [address] [place] [address] Talha Goldsmith MD #[address] [address] documented as of this encounter Visit Diagnoses Not on filedocumented in this encounter Care Teams Production Support Consultant Relationship Specialty Start Date End Date Sloane Villegas, GATE TENDER, ARMAMENT REPAIRER [address] [place] [address] PCP - General Advanced Practice Nurse 06/06/24 Talha Goldsmith MD [address] [place] [id number] Consulting Physician Urology 06/06/24 documented as of this encounter
--- OUTSIDE RECORDS SUMMARY | 2025-06-13 08:49 | XMS_ITS | Clinical Summary ---
Author Organization [facility] Address [address] [place] [address] Phone Care Team Providers Care Mailroom Manager Name Role Phone Sloane Villegas APRN, RICH Primary Care Provi tori Talha Goldsmith MD Unavailable [phone] Allergies Active Allergy Reactions Criticality Noted Date Comments Penicillins Rash Low 04/29/2019 Medications amLODIPine (NORVASC) 10 MG Tablet Take 10 mg by mouth daily. Active Cholecalciferol (Vitamin D3) 125 mcg Capsule Take 1 Capsule by mouth daily. Active lisinopril (PRINIVIL, ZESTRIL) 40 MG Tablet Take 40 mg by mouth daily. Active acetaminophen (TYLENOL) 500 MG Tablet Take 1,000 mg by mouth. Active metoprolol Succinate (TOPROL-XL) 25 MG TABLET SR 24 HR 06/12/2025 Active atorvastatin (LIPITOR) 20 MG Tablet Take 20 mg by mouth daily. Active spironolactone (ALDACTONE) 50 MG Tablet Take 50 mg by mouth daily. Active NIFEdipine CR (PROCARDIA-XL) 60 MG TABLET SR 24 HR Take 60 mg by mouth daily. Active Active Problems No known active problems Encounters Date Type Department Care Team Description 06/12/2025 8:00 AM CDT Office Visit [facility] [address] [place] [address] Talha Goldsmith MD Benign prostatic hyperplasia with incomplete bladder emptying (Primary Dx); History of elevated PSA Discharge Disposition: Discharged to home or Selfcare 06/12/2025 Travel from Last 3 Months Family History Medical History Relation Name Comments Diabetes Father Heart Disease Father Diabetes Mother Relation Name Status Comments Father Mother Social History Tobacco Use Types Packs/Day Years Used Date Smoking Tobacco: Former Cigarettes Q uit: 1994 Smokeless Tobacco: Former Chew Quit: 1989 Tobacco Cessation:Counseling Given: Not Answered Alcohol Use Standard Drinks/Week Comments Not Currently 0 (1 standard drink = 0.6 oz pur e alcohol) once a month Sex and Gender Information Value Date Recorded Sex Assigned at Not on file Legal Sex Male 10:24 PM CDT Gender Identity Not on file Sexual Orientation Not on file Last Filed Vital Signs Vital Sign Reading Time Taken Comments Blood Pressure 153/97 06/12/2025 7:52 AM CDT Pulse 101 06/12/2025 7:52 AM CDT Temperature - - Respiratory Rate 18 06/12/2025 7:52 AM CDT Oxygen Saturation 97% 06/12/2025 7:52 AM CDT Inhaled Oxygen Concentration - - Weight 158.8 kg (350 lb) 06/12/2025 7:52 AM CDT Height 180.3 cm (5' 11) 06/12/2025 7:52 AM CDT Body Mass Index 48.82 06/12/2025 7:52 AM CDT Plan of Treatment Upcoming Encounters Date Type Department Care Team (Late st Contact Info) Description 06/18/2026 8:00 AM CDT Office Visit [facility] [address] [place] [address] Talha Goldsmith MD #[address] [address] Health Maintenance Due Date Last Done Comments Hepatitis C Virus (HCV) Screening 1969 Hepatitis B Immunization (1 of 3 - 19+ 3-dose series) 01/10/1988 Cologuard 2014 Colonoscopy 2014 Colorectal Cancer Screening 2014 Immunochemical Fecal Occult Blood 2014 Pneumococcal Immunization (50+ years) (1 of 1 - PCV) 2019 Zoster Immunization (1 of 2) 2019 SARS-COV-2 Immunization (2023- season) 2024 09/18/2021, 01/20/2021, 12/30/2020 Influenza Immunization (#1) 07/03/202509/02, 07/21/2020, 09/13/2016, Additional history exists Respiratory Syncytial Virus (RSV) Immunization (Adult) (1 - 1-dose 75+ series) 01/10/2044 PSA Discussion Completed 06/06/2024 TdaP Immunization Completed 08/31/2024, 04/03/2014 Human Papillomavirus (HPV) Immunization Aged Out No longer eligible based on patient's age to complete this topic Meningococcal Immunization (ACWY) Aged Out No longer eligible based on patient's age to complete this topic Rotavirus Immunization Aged Out No lo nger eligible based on patient's age to complete this topic Procedures Procedure Name Priority Date/Time Associated Diagnosis Comments POCT UA AUTOMATED W/O MICRO Routine 06/12/2025 8:02 AM CDT History of elevated PSA Benign prostatic hyperplasia with incomplete bladder emptying NITESH,POST-VOID RES,US,NON-IMAGING Routine 06/12/2025 8:00 AM CDT History of elevated PSA Benign prostatic hyperplasia with incomplete bladder emptying PSA SCREEN Routine 06/06/2024 9:05 AM CDT History of elevated PSA from Last 3 Months or Most Recently Relevant to Health Maintenance Results * POCT UA AUTOMATED W/O MICRO (06/12/2025 8:02 AM CDT) POC UA SPECIFIC GRAVITY 1.010 URINE PH 5.0 5.0 - 9.0 POC URINE LEUKOCYTES Negative Negative Jordan/uL POC URINE NITRITE Negative Negative POC URINE PROTEIN Negative Negative mg/dL POC URINE GLUCOSE Norm Negative, Norm mg/dL POC URINE KETONE Negative Negative mg/dL POC URINE UROBILINOGEN Norm Norm, 0.2 E.U./dL (mg/dL), 1 E.U./dL (mg/dL) POC URINE BILIRUBIN Negative Negative mg/dL POC URINE BLOOD INSTRUMENT Negative Negative Fabien/uL POC URINE COLOR Yellow POC URINE CLARITY Clear Urine 06/12/2025 8:02 AM CDT Talha Goldsmith MD POINT OF CARE TESTING ( MANUAL) Final Result * NITESH,POST-VOID RES,US,NON-IMAGING (06/12/2025 8:00 AM CDT) Narrative Jackie Humphreys - 06/12/2025 8:00 AM CDT Jackie Humphreys 06/12/2025 8:25 AM POCT Bladder Scan collected per standing order of Dr. Goldsmith on 06/12/2025 PVR= 0 ML Talha Goldsmith MD [place] - SURGERY Final R esult * PSA SCREEN (06/06/2024 9:05 AM CDT) PSA SCREEN, TOTAL 3.53 <4.00 ng/mL 06/06/2024 11:01 AM CDT [facility] Blood Venipuncture / Unknown 06/06/2024 9:05 AM CDT 06/06/2024 9:36 AM CDT Narrative [facility] - 06/06/2024 11:01 AM CDT The [employer] Total PSA assay is a Chemiluminescent Microparticle Immunoassay (CMIA) for the quantitative determination of total PSA (both free PSA and PSA complexed to [id number]) in human serum. Total PSA values obtained with different assay methods, including Sprague PSA assays, cannot be used interchangeably. Talha Goldsmith MD CHEMISTRY ORDERABLES Fi nal Result [facility] [address] [place] [address] from Last 3 Months or Most Recently Relevant to Health Maintenance Insurance [facility] Care Teams Mailroom Manager Relationship Specialty Start Date End Date Sloane Villegas, CARDIAC REHAB NURSE, FRACTIONATING STILL OPERATOR [address] [place] [address] PCP - General Advanced Practice Nurse 06/06/24 Talha Goldsmith MD #[address] [address] Consulting Physician Urology 06/06/24
--- OUTSIDE RECORDS SUMMARY | 2025-06-13 08:49 | XMS_ITS | Encounter Summary ---
Author Organization [facility] Address [address] [place] [address] Phone Care Team Providers Care Lens Block Gauger Name Role Phone Sloane Gates APRN, TENTER Primary Care Provi tori Talha Goldsmith MD Unavailable [phone] Reason for Visit * Reason Comments Follow-up Encounter Details Date Type Department Care Team (Late st Contact Info) Description 06/12/2025 8:00 AM CDT Office Visit [facility] [address] [place] [address] Talha Goldsmith MD #[address] [address] Benign prostatic hyperplasia with incomplete bladder emptying (Primary Dx); History of elevated PSA Discharge Disposition: Discharged to home or Selfcare Social History Tobacco Use Types Packs/Day Years [...] on file documented as of this encounter Last Filed Vital Signs Vital Sign Reading [...] Mass Index 48.82 06/12/2025 7:52 AM CDT documented in this encounter Progress Notes * Talha Goldsmith MD - 06/12/2025 8:00 AM CDT UROLOG[facility] [address] [facility], [address] [place] [address] PHONE: FAX: Assessment & Plan 1. History of elevated PSA - I reviewed patient's most recent PSA from June 2024 which was within normal limits at 3.53 - Digital rectal examination today showed a ieig-zq-uqqeppdonq enlarged prostate without concerningnodularity, asymmetry, or tenderness - I advised patient to continuing following up with his PCP for routine prostate cancer screening to which he expressed understanding and agreement 2. Benign prostatic hyperplasia with incomplete bladder emptying - s/p PVP in July 2022 (Dr. Grover) - Postvoid residual bladder scan is indicative of excellent bladder emptying today. We will continue to monitor at future visits - Note that patient used to be on Tamsulosin prior his PVP but currently not on any prostate medications to help him urinate - POCT UA AUTOMATED W/O MICRO - NITESH,POST-VOID RES,US,NON-IMAGING Subjective: 06/12/2025 HPI: HPI: Zachary Ellison presents with a chief complaint of BPH/LUTS. Patient presents today for annual follow-up. He reports continuing to do overall well from a urinary standpoint. He did undergo PVP surgery with his previous urologist, Dr. Grover, in 2021. He is noton any medications to help him urinate. Previously he was on tamsulosin. Patient's most recent PSA from June 2024 was 3.53. He has a history of a transient PSA elevation over 5 years ago which then subsequently normalized. Patient denies any personal or family history of prostate cancer. IPSS: 9/2 PVR: 0 mL PSA History: 06/2024 - 3.53 11/2022 - 3.46 12/2020 - 2.35 12/2019 - 7.32 06/06/2024 HPI: Zachary Ellison is a 54yM with PMHx of HTN, morbidy obesity who presents with a chief complaint of BPH/LUTS. Patient used to follow with his previous urologist Dr. Grover at [facility]. He is status post photo vaporization of the prostate in July [address] Grover. Patient also has history of elevated PSA which was thought to be related to acute prostatitis. His PSA in December 2019 was elevated 7.32 and then normalized the following year to 2.35. He does not have a family history of prostate cancer or other urologic malignancies. 06/2024 IPSS: 10/2 06/2024 PVR: 17 mL PSA History: 11/2022 - 3.46 12/2020 - 2.35 12/2019 - 7.32 The following portions of the patient's chart were reviewed in this encounter and updated as appropriate: Tobacco Allergies Meds Problems Med Hx Surg Hx Fam Hx ROS: Review of systems was negative, except as documented in HPI. Current Medications[1] Allergies[2] History reviewed. No pertinent past medical history. Social History Socioeconomic History Marital status: Spouse name: Not on file Number of children: Not on file Years of education: Not on file Highest education level: Not on file Occupational History Not on file Tobacco Use Smoking status: Former Current packs/day: 0.00 Types: Cigarettes Quit date: 1994 Years since quittin.6 Smokeless tobacco: Former Types: Chew Quit date: 1989 Vaping Use Vaping status: Never Used Substance and Sexual Activity Alcohol use: Not Currently Comment: once a month Drug use: Never Sexual activity: Not on file Other Topics Concern Not on file Social History Narrative Not on file Social Drivers of Health Financial Resource Needs: Not on file Food Insecurity Needs: Not on file Transportation Needs: Not on file Physical Activity: Not on file Stress: Not on file Social Integration: Not on file Personal Safety: Not on file Housing Stability: Not on file Past Surgical History[3] Objective: Vital signs: BP (!) 153/97 Pulse 101 Resp 18 Ht 5' 11 (1.803 m) Wt 350 lb (158.8 kg) SpO2 97% BMI 48.82 kg/m?? Vitals: 06/12/25 0752 PainSc: 0 - No pain GENERAL: Normal appearance. Morbidly obese. Patient is sitting in the exam room comfortably. EYES: Extraocular movements intact. No scleral icterus, normal conjuctiva. ENT: Normal external appearance; oral mucosa is pink and moist. NECK: Symmetrical, no visible thyromegaly or masses. CARDIAC: Regular rate RESPIRATORY: Unlabored respirations. Symmetric chest expansion. GASTROINTESTINAL: Abdomen soft, non-tender. GENITOURINARY: YO - prostate 40 g, smooth, no palpable nodules MUSCULOSKELETAL: No obvious cyanosis or clubbing of digits SKIN: Skin appears pink and dry. No obvious rashes over face, neck, or arms. PSYCHIATRIC: Normal judgment and insight. Oriented to person, place, and time; mood and affect are normal. No results found for: WBC, HEMOGLOBIN, HEMATOCRIT, PLATELETCNT, MCV No results found for: SODIUM, POTASSIUM, CHLORIDE, CO2VEN, ANIONGAP, GLUCOSE, BUN, CREATININE, BCRATIO8, TOTALPROTEIN, ALBUMIN, AGRATIO, CALCIUM, TBIL, SGOTAST, SGPTALT, ALKALINEPHO, GFRNA, GFRA Lab Results Component Value Date PSASCREEN 3.53 06/06/2024 Results for orders placed or performed in visit on 06/06/24 URINALYSIS REFLEX IF INDICATED BY ABNORMAL RESULTS Result Value Ref Range Status SPECIFIC GRAVITY 1.010 1.003 - 1.030 Final URINE PH 7.0 5.0 - 9.0 Final WBC ESTERASE Negative Negative Final NITRITE Negative Negative Final PROTEIN, RANDOM URINE 15 mg/dL (A) Negative Final URINE GLUCOSE, QUAL Negative Negative Final URINE KETONES Negative Negative Final UROBILINOGEN Normal Normal mg/dL Final URINE BLOOD Negative Negative radha/ul Final URINALYSIS COLOR Yellow Final URINALYSIS CLARITY Clear Final By: Talha Goldsmith MD, 06/12/2025, 8:21 AM CDT Primary Care Physician: SLOANE GATES APRN, RICH [1] Current Outpatient Medications Medication Sig Dispense Refill acetaminophen (TYLENOL) 500 MG Tablet Take 1,000 mg by mouth. amLODIPine (NORVASC) 10 MG Tablet Take 10 mg by mouth daily. (Patient not taking: Reported on 06/12/2025) atorvastatin (LIPITOR) 20 MG Tablet Take 20 mg by mouth daily. Cholecalciferol (Vitamin D3) 125 mcg Capsule Take 1 Capsule by mouth daily. lisinopril (PRINIVIL, ZESTRIL) 40 MG Tablet Take 40 mg by mouth daily. metoprolol Succinate (TOPROL-XL) 25 MG TABLET SR 24 HR NIFEdipine CR (PROCARDIA-XL) 60 MG TABLET SR 24 HR Take 60 mg by mouth daily. spironolactone (ALDACTONE) 50 MG Tablet Take 50 mg by mouth daily. No current facility-administered medications for this visit. [2] Allergies Allergen Reactions Penicillins Rash [3] Past Surgical History: Procedure Laterality Date KNEE SCOPE,ABRASN ARTHROPLASTY Bilateral LIGATION OF HEMORRHOID(S) VASECTOMY x2 documented in this encounter Procedure Notes * Jackie Humphreys - 06/12/2025 8:00 AM CDTAssociated Order(s): NITESH,POST-VOID RES,US,NON-IMAGING POCT Bladder Scan collected per standing order of Dr. Goldsmith on 06/12/2025 PVR= 0 ML documented in this encounter Plan of Treatment Upcoming Encounters Date Type Department Care Team (Late st Contact Info) Description 06/18/2026 8:00 AM CDT Office Visit [facility] [address] [place] [address] Talah Goldsmith MD #[address] [address] documented as of this encounter Procedures Procedure Name Priority Date/Time Associated Diagnosis Comments POCT UA AUTOMATED W/O MICRO Routine 06/12/2025 8:02 AM CDT History of elevated PSA Benign prostatic hyperplasia with incomplete bladder emptying NITESH,POST-VOID RES,US,NON-IMAGING Routine 06/12/2025 8:00 AM CDT History of elevated PSA Benign prostatic hyperplasia with incomplete bladder emptying documented in this encounter Results * POCT UA AUTOMATED W/O MICRO [...] mg/dL POC URINE BLOOD INSTRUMENT Negative Negative Radha/uL POC URINE COLOR Yellow POC URINE CLARITY Clear Urine 06/12/2025 8:02 AM CDT us Talha Goldsmith MD POINT OF CARE TESTING ( MANUAL) Final Result * NITESH,POST-VOID RES,US,NON-IMAGING (06/12/2025 8:00 AM CDT) Narrative Jackie Humphreys - 06/12/2025 8:00 AM CDT Jackie Humphreys 06/12/2025 8:25 AM POCT Bladder Scan collected per standing order of Dr. Goldsmith on 06/12/2025 PVR= 0 ML us Talha Goldsmith MD [place] - SURGERY Final R esult documented in this encounter Visit Diagnoses Diagnosis Benign prostatic hyperplasia with incomplete bladder emptying- Primary History of elevated PSA Personal history of other specified diseases documented in this encounter Care Teams Lens Block Gauger Relationship Specialty Start Date End Date Sloane Gates, TAPE EDITOR, TENTER [address] [place] [address] PCP - General Advanced Practice Nurse 06/06/24 Talha Goldsmith MD #[address] [address] Consulting Physician Urology 06/06/24 documented as of this encounter
--- OUTSIDE RECORDS SUMMARY | 2025-06-13 08:49 | XMS_ITS | Encounter Summary ---
Author Organization [facility] Address [facility] [place] [address] Care Team Providers Care Photo Colorer Name Role Phone Max Gage MD Primary Care Provider [phone] Pineda Schulz DO Primary Care Provider [phone] Sloane Villegas FINANCIAL PLANNING ASSISTANT Primary Care Provider [phone] Encounter Details Date Type Department Care Team (Late st Contact Info) Description 06/06/[address] [facility] CONVERSION [address] [place] [address] , Generic Conversion, Social History Tobacco Use [...] documented as of this encounter Care Teams Photo Colorer Relationship Specialty Start Date End Date Max Gage MD [address] [place] [address] PCP - General FAMILY PRACTICE 04/29/19 04/18/20 Pineda Schulz DO [address] [place] [address] PCP - General FAMILY PRACTICE 04/19/20 07/16/22 Sloane Villegas, PATRICK [address] [place] [address] PCP - General NURSE PRACTITIONER 07/17/22 documented as of this encounter
--- OUTSIDE RECORDS SUMMARY | 2025-06-13 08:49 | XMS_ITS | Clinical Summary ---
Author Organization [facility] Address [address] [place] [address] Care Team Providers Care Law Firm Receptionist Name Role Phone Sloane Villegas [employer]DOOR SPORTS CENTRE MANAGER Primary Care Provider [phone] Allergies Active Allergy Reactions Criticality Noted Date [...] Comments Blood Pressure 140/90 11/13/2022 10:44 AM SUPPORT SERVICES TECH Pulse 95 11/13/2022 10:44 AM SUPPORT SERVICES TECH Temperature 36.2 C (97.2 F) 11/13/2022 10:44 AM SUPPORT SERVICES TECH Respiratory Rate 18 11/13/2022 10:4 4 AM SUPPORT SERVICES TECH Oxygen Saturation 98% 11/13/2022 10: 44 AM SUPPORT SERVICES TECH Inhaled Oxygen Concentration - - Weight 167.9 kg (370 lb 3.2 oz) 023 10:44 AM SUPPORT SERVICES TECH Height 182.9 cm (6') 11/13/2022 10:44 AM SUPPORT SERVICES TECH Body Mass Index 50.21 11/13/2022 10:44 AM SUPPORT SERVICES TECH Plan of Treatment Health Maintenance Due Date [...] Extended Spectrum Beta-lactamase 11/22/19 19 11/22/2018 Insurance [facility] Advance Directives * Full Code (Latest Code Status on File) Date Activated Date Inactivated Comments 07/29/2022 10:30 AM 07/30/2022 3:08 PM Care Teams Law Firm Receptionist Relationship Specialty Start Date End Date Sloane Villegas FNP [address] [place] [address] PCP - General NURSE PRACTITIONER 07/17/22
--- NOTE | 2025-06-13 09:51 | EST_ITS ---
Patient Info Name: Zachary Ellison Age: 55 years : 1970 Gender: Male Ht: 70 in Wt: 350 lbs BSA: 2.89 m2 Exam Date: 06/13/2025 9:51 AM Patient Status: O Admit Date: 06/13/2025 Exam Type: CA stress mariposa w NM A regadenoson stress test was performed. Staff Referring Physician: Miguel Jama DO Attending Provider: Miguel Jama DO Exercise Technologist: Lety Locke Exercise Physician: Miguel Jama DO Summary 1. 1. Negative lexiscan stress test for ischemic ST changes by ECG criteria. 2. 2. Baseline hypertension. 3. 3. Nuclear scan to follow and will be reported separately. Please correlate with it. 4. 4. Patient informed of the above results. Protocol: Lexiscan Stress ECG Details Stage: REST Duration (min): 4 min : 23 sec HR (bpm): 90 SBP (mmHg): 158 DBP (mmHg): 81 Stage: STAGE 1 Duration (min): 1 min : 0 sec HR (bpm): 110 SBP (mmHg): 167 DBP (mmHg): 79 Stage: RECOVERY Duration (min): 1 min : 0 sec HR (bpm): 108 SBP (mmHg): 167 DBP (mmHg): 79 Stage: RECOVERY Duration (min): 2 min : 0 sec HR (bpm): 103 SBP (mmHg): 167 DBP (mmHg): 79 Stage: RECOVERY Duration (min): 3 min : 0 sec HR (bpm): 101 SBP (mmHg): 177 DBP (mmHg): 80 Stage: RECOVERY Duration (min): 4 min : 0 sec HR (bpm): 102 SBP (mmHg): 177 DBP (mmHg): 80 Stage: RECOVERY Duration (min): 5 min : 0 sec HR (bpm): 104 SBP (mmHg): 171 DBP (mmHg): 87 Stage: RECOVERY Duration (min): 5 min : 1 sec HR (bpm): 104 SBP (mmHg): 171 DBP (mmHg): 87 Rest HR: 90 bpm Peak HR: 112 bpm Rest Sys BP: 158 mmHg Peak Sys BP: 177 mmHg Max Pred HR: 164 bpm % Max Pred HR: 68 % Target HR: 139 bpm Max RPP: 19,824 bpm*mmHg Termination Reason: Completed protocol Cardiac Symptoms: Shortness of breath Total Time: 1 min : 0 sec Rest Basurto BP: 81 mmHg Peak Basurto BP: 80 mmHg Total Dose: 0.4 mg Resting ECG Sinus rhythm. Stress ECG No ST changes. Arrhythmias None. Report Signatures
== END 2025-06-13 08:33 | disposition home or self-care (01) ==
PROVIDERS: PCP Nurse Practitioner Family; Visit Provider Internal Medicine Cardiovascular Disease
DX: R07.9 Chest pain, unspecified (principal); I10 Essential (primary) hypertension
CPT/HCPCS: 78452; 93017; A9502; J2785

== ENCOUNTER 2025-10-24 16:57 | Emergency (ER) | payer BC, SELFPAY ==
--- OUTSIDE RECORDS SUMMARY | 2025-10-24 16:59 | XMS_ITS | Clinical Summary ---
Author Organization [facility] Address [address] [place] [address] Phone Care Team Providers Care Wheel Polisher Name Role Phone Sloane Villegas APRN, SCRUB WOMAN Primary Care Provi tori Talha Goldsmith MD Unavailable [phone] Allergies Active Allergy Reactions Criticality Noted Date [...] Years Used Date Smoking Tobacco: Former Cigarettes 0 Q uit: 1994 Smokeless Tobacco: Former Chew [...] Description 06/18/2026 8:00 AM CDT Office Visit [facility] [address] [place] [id number] Aroldo Aranda MD [address] [address] Health Maintenance Due Date Last Done Comments Hepatitis C Virus (HCV) Screening 1970 Hepatitis B Immunization (1 of 3 - 19+ 3-dose series) 01/10/1988 Cologuard 2014 Colonoscopy 2014 Colorectal Cancer Screening 2014 Immunochemical Fecal Occult Blood 2014 Pneumococcal Immunization (50+ years) (1 of 1 - PCV) 2019 Respiratory Syncytial Virus (RSV) Immunization (Adult) (1 - Risk 50-74 years 1-dose series) 2019 Zoster Immunization (1 of 2) 2019 Influenza Immunization (#1) 07/03/202509/02, 07/21/2020, 09/13/2016, Additional history exists SARS-COV-2 Immunization ( season) 2025 09/18/2021, 01/20/2021, 12/30/2020 PSA Discussion Completed 06/06/2024 TdaP Immunization Completed 08/31/2024, 04/03/2014 Human Papillomavirus (HPV) Immunization (No Doses Required) Completed Meningococcal Immunization (ACWY) Aged Out No longer [...] 3.53 <4.00 ng/mL 06/06/2024 11:01 AM CDT [facility] Blood Venipuncture / Unknown 06/06/2024 9:05 AM CDT 06/06/2024 9:36 AM CDT Narrative [facility] - 06/06/2024 11:01 AM CDT The ALINITY Total PSA assay is a Chemiluminescent Microparticle Immunoassay (CMIA) for the quantitative determination of total PSA (both free PSA and PSA complexed to [id number]) in human serum. Total PSA values obtained with different assay methods, including Sprague PSA assays, cannot be used interchangeably. us Talha Goldsmith MD CHEMISTRY ORDERABLES Fi nal Result [facility] [address] [place] [address] from Last 3 Months or Most Recently Relevant to Health Maintenance Insurance [facility] Care Teams Wheel Polisher Relationship Specialty Start Date End Date Sloane Villegas, FLUX TUBE ATTENDANT, SCRUB WOMAN [address] [place] [address] PCP - General Advanced Practice Nurse 06/06/24 Talha Goldsmith MD [address] [address] Consulting Physician Urology 06/06/24
--- OUTSIDE RECORDS SUMMARY | 2025-10-24 16:59 | XMS_ITS | Encounter Summary ---
Author Organization [facility] Address [facility] [place] [address] Care Team Providers Care Product Marketing Manager Name Role Phone Max Gage MD Primary Care Provider [phone] Pineda Schulz DO Primary Care Provider [phone] Sloane Villegas CHECKER PRODUCT DESIGN Primary Care Provider [phone] Encounter Details Date Type Department Care Team (Late st Contact Info) Description 06/06/2015 Abstract [facility] CONVERSION [address] [place] [address] , Generic Conversion, Social History Tobacco Use [...] documented as of this encounter Care Teams Product Marketing Manager Relationship Specialty Start Date End Date Max Gage MD [address] [place] [address] PCP - General FAMILY PRACTICE 04/29/19 04/18/20 Pineda Schulz DO [address] [place] [address] PCP - General FAMILY PRACTICE 04/19/20 07/16/22 Sloane Villegas, PATRICK [address] [place] [address] PCP - General NURSE PRACTITIONER 07/17/22 documented as of this encounter
--- OUTSIDE RECORDS SUMMARY | 2025-10-24 16:59 | XMS_ITS | Clinical Summary ---
Author Organization [facility] Address [address] [place] [address] Care Team Providers Care Outreach Representative Name Role Phone Sloane Villegas FARM EQUIPMENT OPERATOR Primary Care Provider [phone] Allergies Active Allergy Reactions Criticality Noted Date [...] Comments Blood Pressure 140/90 11/13/2022 10:44 AM COMPUTER SOFTWARE ENGINEER Pulse 95 11/13/2022 10:44 AM COMPUTER SOFTWARE ENGINEER Temperature 36.2 C (97.2 F) 11/13/2022 10:44 AM COMPUTER SOFTWARE ENGINEER Respiratory Rate 18 11/13/2022 10:4 4 AM COMPUTER SOFTWARE ENGINEER Oxygen Saturation 98% 11/13/2022 10: 44 AM COMPUTER SOFTWARE ENGINEER Inhaled Oxygen Concentration - - Weight 167.9 kg (370 lb 3.2 oz) 023 10:44 AM COMPUTER SOFTWARE ENGINEER Height 182.9 cm (6') 11/13/2022 10:44 AM COMPUTER SOFTWARE ENGINEER Body Mass Index 50.21 11/13/2022 10:44 AM COMPUTER SOFTWARE ENGINEER Plan of Treatment Health Maintenance Due Date Last Done Comments Colorectal Cancer Screening Colonoscopy (10 Years) 1970 Annual Physical 01/10/1972 Hepatitis C 1987 Hepatitis B Vaccines (1 of 3 - 19+ 3-dose series) 01/10/1988 Pneumococcal Vaccine: 50+ Years (1 of 1 - PCV) 2019 Zoster Vaccines (1 of 2) 2019 DTaP, Tdap and Td Vaccines (2 - Td or Tdap) 04/03/2024 04/03/2014 COVID-19 Vaccine ( - season) 2025 09/18/2021, 01/20/2021, 12/30/2020 Influenza Adult (#1) 2025 07/21/2020, 07/21/2020, 09/13/2016, Additional history exists Hepatitis A Vaccines Aged Out No long er eligible based on patient's age to complete this topic Meningococcal B Vaccine Aged Out No l onger eligible based on patient's age to complete this topic Meningococcal Vaccine Aged Out No sally joel eligible based on patient's age to complete this topic RSV Immunizations Under 20 Months Aged Out No longer eligible based on patient's age to complete this topic Additional Health Concerns Infection Onset Date Last Indicated ESBL - Extended Spectrum Beta-lactamase 11/22/19 19 11/22/2018 Insurance [facility] Advance Directives * Full Code (Latest Code Status on File) Date Activated Date Inactivated Comments 07/29/2022 10:30 AM 07/30/2022 3:08 PM Care Teams Outreach Representative Relationship Specialty Start Date End Date Sloane Villegas FNP [address] [place] [address] PCP - General NURSE PRACTITIONER 07/17/22
[2025-10-24 17:00] VITALS: BP 133/77; PULSE 132; RESP 20; TEMP 38.1; O2SAT 96
[2025-10-24 17:26] LABS: EDCOVIDSCREEN Positive (Negative); EDINFLUASCREEN Negative (Negative); EDINFLUBSCREEN Negative (Negative)
--- NOTE | 2025-10-24 17:36 | ED.URI ---
HPI - URI/Sore Throat General Chief Complaint: Upper Respiratory Infection Stated Complaint: fever/cough/nose/aches Time Seen by Provider: 10/24/25 17:40 Source: patient and RN notes reviewed Mode of arrival: ambulatory Limitations: no limitations History of Present Illness HPI Narrative: 55-year-old male patient presents Express Care complaining of upper respiratory symptoms since yesterday. Patient reports fever, cough, congestion, runny nose, body aches, chills. Patient denies any chest pain, shortness of breath, difficulty breathing, nausea vomiting, diarrhea, or any other symptoms. Patient taking [id number] help with symptoms. Patient has a history of hypertension prostate problems. Related Data Allergies Allergy/AdvReac Type Severity Reaction Status Date / Time Penicillins Allergy Intermediate Unknown Verified 10/24/25 17:14 Review of Systems Review of Systems: CONSTITUTIONAL: Positive for fevers, body aches, chills. Negative for sweats. EYES: Denies visual changes, redness, or discharge. ENT: Positive for rhinorrhea, congestion. Negative for sore throat, or otalgia. CARDIOVASCULAR: Denies chest pain, palpitations, or edema. RESPIRATORY: Positive for cough. Negative for wheezing or Dyspnea. GASTROINTESTINAL: Denies abdominal pain, nausea, vomiting, or diarrhea. GENITOURINARY: Denies dysuria or hematuria. SKIN: Denies rash or itching. MUSCULOSKELETAL: Denies back pain, joint pain, or myalgia. NEUROLOGIC: Denies headache, numbness, or weakness. PSYCHIATRIC: Denies anxiety or depression. All other systems reviewed are negative, except as documented in HPI. [facility] Past Medical History Medical History BPH (benign prostatic hyperplasia) BPH (benign prostatic hyperplasia) BMI 50.0-59.9, adult Enlarged prostate Fatigue HTN (hypertension) Acute bacterial sinusitis Surgical History Surgical History History of cystoscopy Cystoscopy, laser vaporization prostate on 07/29/[address] Grover Family History Family History Father Family history of type 2 diabetes mellitus Father Diabetes mellitus Family history of cardiovascular disease Social History Social History Smoking status: Former smoker Tobacco type: cigarettes Smoking end date: 11/02/93 Alcohol intake: current Gender identity (if verbalized by the patient): Male Comments At the time of my signature, I reviewed and agree with the nursing past medical, surgical, social, and family history. There is no relevant family history pertinent to the patient complaint. Exam Narrative: GENERAL: This is a well-nourished, well-developed adult, in no apparent distress. They are non ill-appearing, nontoxic appearing. Patient is morbidly obese. HEAD: normocephalic, atraumatic. EYES: Sclera clear/white. Conjunctiva normal. Vision is grossly intact. Extraocular movements intact EARS: External ears normal, auditory canals clear and without drainage, TMs normal without perforation. Hearing grossly intact. NOSE: External nose normal with no obvious nasal discharge, nasal turbinates erythematous with rhinorrhea. THROAT: Mucous membranes moist, posterior pharynx erythematous. PND present. Uvula midline. NECK: Neck supple, non-tender without lymphadenopathy, masses or thyromegaly. CARDIOVASCULAR: Regular rate and rhythm without murmurs, gallops, or rubs. RESPIRATORY: Clear to auscultation. Breath sounds equal bilaterally. No wheezes, rales, or rhonchi. Respiratory rate normal, respiratory effort nonlabored, no respiratory distress SKIN: warm, Dry, intact with no suspicious lesions or rash, good texture and turgor. NEURO: awake, alert, and oriented to person, place and time. There were no obvious focal neurologic abnormalities. EXTREMITIES: No joint tenderness, effusion, or edema noted. BACK: Nontender without deformity. No CVA tenderness. Course Course Level of Care: Express Care Visit Vital Signs Vital signs: Vital Signs Temperature 100.5 F H 10/24/25 17:00 Pulse Rate 132 H 10/24/25 17:00 Respiratory Rate 20 10/24/25 17:00 Blood Pressure 133/77 10/24/25 17:00 Pulse Oximetry 96 10/24/25 17:00 Oxygen Delivery Room Air 10/24/25 17:00 Temperature 100.5 F H 10/24/25 17:00 Pulse Rate 132 H 10/24/25 17:00 Respiratory Rate 20 10/24/25 17:00 Blood Pressure 133/77 12/23/25 17:00 Pulse Oximetry 96 10/24/25 17:00 Oxygen Delivery Room Air 10/24/25 17:00 MDM [facility] Narrative Medical decision making narrative: Rapid COVID is positive. Negative flu. Patient's risk factors and morbid obesity, slight risk factor of hypertension, offered patient Paxlovid and he declined. Discussed supportive care. Discussed physical exam findings. Advised supportive measures and signs/symptoms to go to the ER. Pt is appropriate for outpt treatment and f/u. Differential Diagnosis Differential Diagnosis: Differential diagnostic considerations for upper respiratory infection include upper respiratory infection, croup, otitis media, sinusitis, viral infection, bronchitis, influenza, pharyngitis, strep, uvulitis, COVID. Lab Data [facility] Lab Attestation statement: I personally reviewed the patient's lab results. Labs: Lab Results 10/24/25 Range/Units 17:24 POC Influenza A Ag Negative (Negative) POC Influenza B Ag Negative (Negative) POC SARS CoV-2 Ag Positive (Negative) Critical Care Time Critical Care Time Critical Care Time: No Discharge Plan Discharge Clinical Impression: COVID-19 Patient Disposition: Home Condition: Stable Instructions: Antibiotic Form, COVID-19 (Coronavirus Disease 2019) (ED) Additional Instructions: You should avoid crowds until you are fever free for 24 hours without the use of fever reducing medications, or the symptoms are improved Rest. Drink plenty of fluids. Tylenol or ibuprofen as needed for pain or fevers. Recommend as the listing nasal spray and Zyrtec (or Claritin/Jess) for sinus pressure/congestion Take benzonatate tablets as needed for cough. Follow up with your primary care provider 3-5 week Go to the ER for worsening symptoms, chest pain, wheezing, difficulty breathing, shortness of breath, unable to talk in full sentences, weakness, confusion, or any serious concerns. Patient Language: Faroese Prescriptions: No Action nifedipine 60 mg tablet extended release See Rx Instructions .ROUTE .COMPLEX Qty: 90 2RF Dose Instruction: Take 1 tablet by mouth once daily Rx Instructions: Take 1 tablet by mouth once daily spironolactone 50 mg tablet See Rx Instructions .ROUTE .COMPLEX Qty: 90 1RF Dose Instruction: Take 1 tablet by mouth once daily Rx Instructions: Take 1 tablet by mouth once daily lisinopril 40 mg tablet See Rx Instructions .ROUTE .COMPLEX Qty: 90 0RF Dose Instruction: Take 1 tablet by mouth once daily Rx Instructions: Take 1 tablet by mouth once daily Follow-up/Referrals: PHYSICIAN NOT ON STAFF,NONSTAFF [Primary Care Provider] Time of Disposition: 17:51
== END 2025-10-24 17:56 | disposition home or self-care (01) ==
DX: U07.1 COVID-19 (principal); Z87.891 Personal history of nicotine dependence; I10 Essential (primary) hypertension; N40.0 Benign prostatic hyperplasia without lower urinary tract symptoms
CPT/HCPCS: 87426; 87804; 99212; G0463